=== PATIENT | female | born 2000 | race Native Hawaiian/Other Pacific Islander ===

== ENCOUNTER 2019-06-22 01:47 | Emergency (ER) | payer OTHER, SELFPAY ==
[2019-06-22 01:48] VITALS: BP 114/103; PULSE 90; RESP 15; TEMP 36.5; O2SAT 100; BMI 29.8
--- NOTE | 2019-06-22 02:32 | ED.DCSUM_ITS ---
History of Present Illness Chief Complaint: ETOH Intox Narrative: Patient is a 19-year-old female who presents with acute alcohol intoxication. She is a [employer] student. Friends with her the states she was drinking and patient admits that she was drinking alcohol. She also reports nausea and vomiting. When asked if she takes any prescription medication she stated yes but when I tried to clarify what she is prescribed she just stated modern medicine. Past Medical History Past Medical History: - - Unable to obtain Smoking Status: Light Smoker (<10/day) Review of Systems ROS: Unable to Obtain Physical Exam Vital Signs/Narrative: Vital Signs Temp Pulse Resp BP Pulse Ox 06/22/19 01:48 97.7 F L 90 15 114/103 H 100 Inital Vital Signs reviewed: Yes General: Well nourished Head: Normocephalic Eyes: EOMI ENT: Moist mucous membranes Neck: Supple Cardiovascular: Regular rate, Regular rhythm Respiratory: No distress Abdomen: Soft, Nontender Skin: Normal color Neurological: - - Lethargic but arouses to repeated stimulation no focal or lateralizing neurological deficits, patient appears clinically intoxicated Diagnostic/Tx/Re-eval - Medical Decision Making Patient has been observed. On reevaluation she is more alert with improvement of her mental status but is still drowsy. She has no complaints except nausea. We will observe until clinically sober and able to ambulate without assistance at which point she will be discharged back to the [employer]. ED Disposition - Plan for ED Patient: Disposition: Home or Assisted Living Diagnosis: Alcohol intoxication Instructions: Alcohol Intoxication
[2019-06-22 03:19] VITALS: BP 111/83; PULSE 102; RESP 18; O2SAT 96
[2019-06-22 05:24] VITALS: BP 85/55; PULSE 84; RESP 19; O2SAT 97
[2019-06-22 07:08] VITALS: BP 111/87; PULSE 107; RESP 14; O2SAT 100
[2019-06-22] MEDS: Ondansetron ODT 4 MG Tablet PO (07:09)
== END 2019-06-22 07:33 | disposition home or self-care (01) ==
LOC: ED 07:13
PROVIDERS: Emergency Provider Emergency Medicine; Family Provider Pediatrics; PCP Pediatrics
DX: F10.129 Alcohol abuse with intoxication, unspecified (principal); F17.200 Nicotine dependence, unspecified, uncomplicated
CPT/HCPCS: 99284

== ENCOUNTER 2021-08-23 15:08 | Outpatient (CLI) | payer OTHER, SELFPAY | END 2021-08-23 23:59 | disposition short-term general hospital (02) | LOC: IMMUN 08-31 15:09 | PROVIDERS: PCP Pediatrics; Visit Provider Family Medicine | DX: Z23 Encounter for immunization (principal) ==